=== PATIENT | female | born 2000 | race Caucasian/White ===

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

== ENCOUNTER 2019-10-26 08:11 | Emergency (ER) | payer BC ==
--- OUTSIDE RECORDS SUMMARY | 2019-10-26 08:22 | XMS REPORT | Continuity of Care Document ---
:2000 Author Organization [facility] Address [address] [place] [address] Phone Care Team Providers Name Role Phone Wendy LABORER COOK HOUSERaven Unavailable Unavailable [facility], NURSE OR MA Unavailable Unavailable Allergies, Adverse Reactions, Alerts Substance Reaction Status Penicillins RashRash Active Medications Medication Instructions Dosage Effective Dates Status Comments (start - stop) Claritin 5 mg/5 mL take 10 milliliter by 10 MG - Active oral solution oral route every day Problems Condition Effective Dates (start - Clinical Status Comments stop) Encounter for test, result positive Body mass index (BMI) 22.0-22.9, adult Encounter for test, result negative Encounter for oth general cnsl and advice on contraception Encntr screen for infections w sexl mode of transmiss Procedures Procedure Date POSITIVE TEST MA ONLY VISIT EST OTHER Medical Services Contraceptive Global Account Executive.Svc. Other Global Account Executive.Svc. STI Contraceptive Global Account Executive.Svc. Other Global Account Executive.Svc. STI Global Account Executive.Svc. POS PREG DESIRED NOW REFERRAL FOR Results Test Name Date and Time Measure Units Reference Range Abnormal Flag Status Comments Panel Description: High Sensitivity Urine Test Final High Sensitivity Urine 09:28:24 PositiveInternal Quality Final Test Control: Positive Advance Directives Directive Yes / No Effective Date File Name No information Encounters Encounter Practice Location Reason(s) Diagnoses Date Provider Providers Description For Visit Copied on Encounter [facility] Encounter for [place] [facility] [place] Test test, [employer]. Provider: [place] (chief result positive [address] [place] complaint) [place], [place] [place] [place], [address], [place], [place], [place], [address]. [place], [address]. [id number], tel: tel: [phone] tel: sulting [phone] Provider: NURSE OR MA [facility]. [facility] Body mass index [place] [place] (BMI) 22.0-22.9, [place]. Provider: [facility] for [address] test, [place] [place] [facility]ounter [place], [address], [place], for oth general [place], [place], [place], [place] [address], [place], [address]. [id number], contraceptionEncntr US. US screen for tel: infections w sexl [id number] mode of transmiss Family History Family Member Diagnosis Age At Onset No information Immunizations Vaccine Date Status Comments No information Payers Payer name Insurance type Covered alliance party ID Authorization(s) No information Social History Type Description Quantity Date Captured Comments Alcohol Use Details Unknown Caffeine Use Details Unknown Tobacco Use Status Current non-smoker Smoking Status Never smoker Non-Smoking Tobacco : No Details Available : No Details Available 2018 Use Details Sex Female Vital Signs Date / Height Weight BMI Pulse Blood Temperature Respiratory Body Head BMI Pulse Inhaled Time: Rate Pressure Rate Surface Circumference percentile Ox Ox Area No information Chief Complaint And Reason For Visit Most recent encounter only, dated '09/28/2019 09:00'. Test ( chief complaint) Reason For Referral Reason For Referral No information Plan Of Treatment Date Type Action Status No information History Of Present Illness Encounter Date Complaint History Of Present Illness No information Functional Status Date Functional Assessment No information Medications Administered Medication Instructions Dosage Effective Dates (start - stop) Status Comments No information Instructions Date Instruction Additional Information No information Assessments Type Assessment Date assessment Encounter for test, result positive Goals Health Concern Goal Type Priority Status Date No information Medical Equipment Description Device [place] Device Identifier Effective Dates (start - stop ) Status No information Mental Status Date Cognitive Assessment No information Health Concerns Observation Date No information Concern Status Date No information
[2019-10-26] MEDS ORDERED: Acetaminophen TAB* 325 MG PO ONE (08:29)
--- NOTE | 2019-10-26 08:34 | ED ---
GI/ HPI - HPI Summary HPI Summary: The patient is a 19 y/o F presenting to [facility] with a chief complaint of sore throat and cough onset a week ago and nausea and vomiting onset two days ago. She reports that about a week ago she began to experience cold symptoms with a sore throat and cough. She was feeling better two days ago but then developed nausea, vomiting, intermittent suprapubic cramping, body aches, fatigue, and dizziness. She notes that she is currently 8 weeks gravid and has been to the OB [facility] to confirm intrauterine . She denies any vaginal bleeding, vaginal discharge, fevers, or diarrhea. Symptoms rated 5/10 in severity. A0. No PMHx. Nonsmoker, no EtOH, no substance use. Medications reviewed. Allergies noted. - History of Current Complaint Chief Complaint: EDNauseaVomitDiarrh Time Seen by Provider: 10/26/19 08:19 Stated Complaint: GENERAL ILLNESS/VOMITING PER PT Hx Obtained From: Patient Onset/Duration: Started Days Ago, Still Present Timing: Lasting Days Severity: Moderate Current Severity: Moderate Pain Intensity: 5 Location of Pain: Suprapubic Pain Characteristics: Cramping Associated Signs and Symptoms: Positive: Dizziness, Nausea, Vomiting, Abdominal Pain, Cough, Other: - sore throat, fatigue, body aches. Negative: Diarrhea, Fever Additional Signs & Symptoms: Positive: . Negative: Vaginal Bleeding, Vaginal Discharge - Allergy/Home Medications Allergies/Adverse Reactions: Allergies Allergy/AdvReac Type Severity Reaction Status Date / Time Penicillins Allergy Rash Verified 10/26/19 08:16 PMH/Surg Hx/FS Hx/Imm Hx Endocrine/Hematology History: Denies: Hx Diabetes Cardiovascular History: Denies: Hx Hypertension Respiratory History: Denies: Hx Asthma - Surgical History Surgical History: Yes Surgery Procedure, Year, and Place: wisdom teeth Infectious Disease History: No Infectious Disease History: Denies: Traveled Outside the [place] in Last 30 Days - Family History Known Family History: Negative: Cardiac Disease - Social History Alcohol Use: None Hx Substance Use: No Substance Use Type: Reports: None Hx Tobacco Use: No Smoking Status (MU): Never Smoked Tobacco Review of Systems Positive: Fatigue. Negative: Fever Positive: Sore Throat Positive: Cough Positive: Abdominal Pain - intermittent suprapubic cramping, Vomiting, Nausea. Negative: Diarrhea Negative: discharge, other - bleeding Positive: Myalgia - generalized body aches Neurological: Other - dizziness All Other Systems Reviewed And Are Negative: Yes Physical Exam - Summary Physical Exam Summary: Constitutional: Well-developed, Well-nourished, Alert. (-) Distressed Skin: Warm, Dry HENT: Normocephalic; Atraumatic; Tonsillar erythema, Uvula midline Eyes: Conjunctiva normal Neck: Musculoskeletal ROM normal neck. (-) JVD, (-) Stridor, (-) Tracheal deviation Cardio: Rhythm regular, rate normal, Heart sounds normal; Intact distal pulses; Radial pulses are 2+ and symmetric. (-) Murmur Pulmonary/Chest wall: Effort normal. (-) Respiratory distress, (-) Wheezes, (-) Rales Abd: Soft, (+) suprapubic tenderness, (-) Distension, (-) Guarding, (-) Rebound Musculoskeletal: (-) Edema Lymph: (+) Anterior cervical adenopathy Neuro: Alert, Oriented x3 Psych: Mood and affect Normal Triage Information Reviewed: Yes Vital Signs On Initial Exam: Initial Vitals Temp Pulse Resp BP Pulse Ox 97.8 F 86 14 120/88 99 10/26/19 08:12 10/26/19 08:12 10/26/19 08:12 10/26/19 08:12 10/26/19 08:12 Vital Signs Reviewed: Yes Procedures - Sedation Patient Received Moderate/Deep Sedation with Procedure: No Diagnostics - Vital Signs Vital Signs Temp Pulse Resp BP Pulse Ox 10/26/19 08:12 97.8 F 86 14 120/88 99 - Laboratory Lab Statement: Any lab studies that have been ordered have been reviewed, and results considered in the medical decision making process. Re-Evaluation - Re-Evaluation First Eval Re-Evaluation Time: 09:10 Comment: We discussed results and plan for discharge. GIGU Course/Dx - Course Course Of Treatment: Patient is here with viral type symptoms in the setting of . Patient is overall well-appearing with only mild suprapubic tenderness. Patient had a negative rapid influenza and rapid strep test. Patient had a UA which showed bacteriuria. Patient was started on Keflex. Patient was given Tylenol for her pain. Patient was encouraged to follow up with her [facility] in the next 1-3 days. Patient had no vaginal symptoms and do not believe this represents a complication with her . Patient has had an US already which identified an IUP with a positive heart rate. - Diagnoses Provider Diagnoses: Asymptomatic bacteriuria, Viral syndrome Discharge ED - Sign-Out/Discharge Documenting (check all that apply): Patient Departure - Patient will be discharged home. - Discharge Plan Condition: Stable Disposition: HOME Prescriptions: Cephalexin CAP* [Keflex CAP*] 500 mg PO TID 3 Days #9 cap Metoclopramide TAB* [Reglan TAB*] 5 mg PO Q8H #12 tab Patient Education Materials: Viral Syndrome (ED) Referrals: Ramila Coffey NP [Primary Care Provider] - 3 Days Modesto Villaseñor MD [Medical Doctor] - 3 Days Additional Instructions: Take antibiotics as prescribed. Use nausea medications as needed. Stay hydrated with Gatorade and Pedialyte. Come back to the emergency department for any vaginal bleeding, vaginal discharge, worsening abdominal pain, trouble breathing , or any other concerning symptoms. Follow up with Dr. Villaseñor in 1-3 days. - Billing Disposition and Condition Condition: STABLE Disposition: Home - Attestation Statements Document Initiated by Alonzoibe: Yes Documenting Scribe: Anabel Juarez Provider For Whom Antoni is Documenting (Include Credential): Dr. Deni Graves MD Scribe Attestation: Anabel Alvarado scribed for Dr. Deni Graves MD on 10/26/19 at 0929. Scribe Documentation Reviewed: Yes Provider Attestation: The documentation as recorded by the Anabel ambrose accurately reflects the service I personally performed and the decisions made by me, Dr. Deni Graves MD Status of Scribe Document: Viewed
[2019-10-26 08:53] LABS: Urine Appearance Turbid; Urine Bilirubin Negative (Negative); Urine Blood Negative (Negative); Urine Color Yellow; Urine Glucose Negative (Negative); Urine Ketones Negative (Negative); Urine Nitrite Negative (Negative); Urine Protein Negative (Negative); Urine Urobilinogen Negative (Negative)
[2019-10-26 08:55] LABS: Rapid Strep Molecular Negative (Negative)
[2019-10-26 09:02] LABS: Influenza A Molecular NEGATIVE (Negative); Influenza B Molecular NEGATIVE (Negative)
[2019-10-26 09:03] LABS: Urine Bacteria 2+ (Absent); Urine Red Blood Cell Trace(0-2/hpf) (Absent); Urine Squamous Epithelial Cell Present (Absent); Urine White Blood Cell 3+(>20/hpf) (Absent)
[2019-10-26 09:28] VITALS: BP 96/62
== END 2019-10-26 09:30 | disposition home or self-care (01) ==
LOC: ED 08:11
DX: B34.9 Viral infection, unspecified (principal); R82.71 Bacteriuria; J02.9 Acute pharyngitis, unspecified; R05 Cough; R11.2 Nausea with vomiting, unspecified; R10.9 Unspecified abdominal pain; Z79.899 Other long term (current) drug therapy
CPT/HCPCS: 81003; 81015; 87086; 87651; 99283; A9270-GY

== ENCOUNTER 2020-05-22 23:08 | Inpatient (IN) ==
[2020-05-23] MEDS ORDERED: ceFAZolin 2 GM PREMIX 2 GM/50 ML BAG IVPB ONE (00:09)
[2020-05-23] MEDS ORDERED: Lactated Ringers 1000 ml BAG 1,000 ML IV ONE (00:09)
[2020-05-23 00:41] LABS: ABS Eosinophils 0.1 10^3/ul (0-0.6); ABS Lymphocytes 2.6 10^3/ul (1.0-4.8); ABS Monocytes 0.9 10^3/ul (0-0.8); Eosinophil % 0.7 %; Hematocrit 37 % (35-47); Hemoglobin 13.2 g/dL (12.0-16.0); Lymphocyte % 18.6 %; Mean Corpuscular HGB Conc 36 g/dL (31-36); Mean Corpuscular Hemoglobin 32 pg (27-31); Mean Corpuscular Volume 91 fL (80-97); Mean Platelet Volume 8.8 fL (7.4-10.4); Platelet Count 266 10^3/uL (150-450); Red Blood Count 4.11 10^6 /uL (3.70-4.87); Red Cell Distribution Width 13 % (10-15); White Blood Count 13.9 10^3/uL (3.5-10.8)
[2020-05-23] MEDS ORDERED: Lactated Ringers 1000 ml BAG 1,000 ML IV SCH (01:00)
[2020-05-23 01:14] LABS: Urine Benzodiazepine Screen None Detected (None Detect); Urine Opiates Screen None Detected (None Detect)
[2020-05-23] MEDS: ceFAZolin 1 GM ADVAN 1 GM in NS 0.9% 50 ML 50 ML IVPB SCH ×2 (08:37→18:00)
[2020-05-23] MEDS ORDERED: OBEPIDURAL 250 ML EPIDURAL ONE (10:02)
[2020-05-23] MEDS ORDERED: Lidocaine 2% w/ EPI 1:200,000 MPF 20 ML SDV VIAL ONE (10:15)
[2020-05-23] MEDS ORDERED: Lactated Ringers 500 ml BAG 500 ML IV PRN ×2 (10:44→13:43)
[2020-05-23] MEDS ORDERED: Witch Hazel PAD JAR TOPICAL PRN (15:26)
[2020-05-23] MEDS: Dibucaine 1% OINT 28.35 GM TUBE PR PRN (16:41)
[2020-05-24 07:30] LABS: ABS Eosinophils 0.1 10^3/ul (0-0.6); ABS Lymphocytes 2.4 10^3/ul (1.0-4.8); Eosinophil % 0.4 %; Hematocrit 33 % (35-47); Hemoglobin 11.7 g/dL (12.0-16.0); Lymphocyte % 16.9 %; Mean Corpuscular HGB Conc 35 g/dL (31-36); Mean Corpuscular Hemoglobin 32 pg (27-31); Mean Corpuscular Volume 91 fL (80-97); Mean Platelet Volume 8.3 fL (7.4-10.4); Platelet Count 206 10^3/uL (150-450); Red Blood Count 3.61 10^6 /uL (3.70-4.87); Red Cell Distribution Width 13 % (10-15); White Blood Count 14.5 10^3/uL (3.5-10.8)
[2020-05-24] MEDS: Dibucaine 1% OINT 28.35 GM TUBE PR PRN (18:39)
[2020-05-25 09:52] VITALS: BP 120/70
== END 2020-05-25 10:55 | disposition home or self-care (01) | DRG 560 ==
LOC: MCHOBOUT 23:08 → MCHOB 23:51
PROVIDERS: ADMIT Obstetrics & Gynecology; ATTEND Obstetrics & Gynecology

== ENCOUNTER 2020-09-10 09:32 | Inpatient (IN) ==
[2020-09-10] MEDS ORDERED: NS 0.9% 1000 ml BAG 1,000 ML IV ONE (10:03)
[2020-09-10 10:17] LABS: Hematocrit 41 % (35-47); Hemoglobin 13.9 g/dL (12.0-16.0); Mean Corpuscular HGB Conc 34 g/dL (31-36); Mean Corpuscular Hemoglobin 30 pg (27-31); Mean Corpuscular Volume 87 fL (80-97); Mean Platelet Volume 7.8 fL (7.4-10.4); Platelet Count 326 10^3/uL (150-450); Red Blood Count 4.69 10^6 /uL (3.70-4.87); Red Cell Distribution Width 13 % (10-15); White Blood Count 30.3 10^3/uL (3.5-10.8)
[2020-09-10 10:17] LABS: Urine Appearance Cloudy; Urine Bilirubin Negative (Negative); Urine Blood Negative (Negative); Urine Color Yellow; Urine Glucose Negative (Negative); Urine Ketones Negative (Negative); Urine Nitrite Negative (Negative); Urine Protein 1+(30 mg/dL) (Negative); Urine Specific Gravity 1.025 (1.010-1.030); Urine Urobilinogen Negative (Negative)
[2020-09-10 10:19] LABS: Urine Bacteria Absent (Absent); Urine Red Blood Cell 1+(3-5/hpf) (Absent); Urine Squamous Epithelial Cell Present (Absent); Urine White Blood Cell Trace(0-5/hpf) (Absent)
[2020-09-10 10:34] LABS: ALT 20 U/L (7-52); AST 23 U/L (13-39); Albumin 4.5 g/dL (3.2-5.2); Albumin/Globulin Ratio 1.4 (1-3); Alkaline Phosphatase 111 U/L (34-104); Anion Gap 9 mmol/L (2-11); BUN/Creatinine Ratio 15.9 (8-20); Blood Urea Nitrogen 14 mg/dL (6-24); C Reactive Protein 11.88 mg/L (<8.01); CO2 Carbon Dioxide 25 mmol/L (22-32); Calcium 9.5 mg/dL (8.6-10.3); Chloride 103 mmol/L (101-111); EGFR African American 99.1 (>60); EGFR Non-African American 81.9 (>60); Globulin 3.3 g/dL (2-4); Glucose 115 mg/dL (70-100); Lipase 21 U/L (11.0-82.0); Magnesium 1.4 mg/dL (1.9-2.7); Potassium 3.7 mmol/L (3.5-5.0); Sodium 137 mmol/L (135-145); Total Protein 7.8 g/dL (6.4-8.9)
[2020-09-10 10:40] LABS: HCG Pregnancy < 0.60 mIU/mL
[2020-09-10 11:10] LABS: ABS Lymphocytes 0.5 10^3/ul (1.0-4.8); ABS Monocytes 1.1 10^3/ul (0-0.8); ABS Neutrophils 28.7 10^3/ul (1.5-7.7); Lymphocyte % 1.5 %
[2020-09-10] MEDS ORDERED: Magnesium Sulfate IV 1GM/100ML 1 GM/100 ML BAG IV ONE (11:33)
[2020-09-10] MEDS ORDERED: Dexamethasone IV 4 MG/ML VIAL 1 ml VIAL IV SLOW PU ONE (12:01)
[2020-09-10] MEDS ORDERED: Iohexol 350 (CONTRAST) 500 ML MDV IV ONE (13:22)
[2020-09-10] MEDS ORDERED: Ondansetron 4 mg VIAL 2 MG/ML 2 ml VIAL IV PRN (15:29)
[2020-09-10 15:43] LABS: Influenza A Molecular Negative (Negative); Influenza B Molecular Negative (Negative)
[2020-09-10] MEDS ORDERED: NS 0.9% IV ONE (15:48)
[2020-09-10] MEDS: NS 0.9% 1000 ml BAG 1,000 ML IV SCH (16:11)
[2020-09-10] MEDS ORDERED: cefTRIAXone 1 gm/50 mL NS BAG 1 GM/50 ML BAG IVPB SCH (17:00)
[2020-09-10] MEDS ORDERED: Enoxaparin 40 MG/0.4 ML SYR SUBCUT SCH (18:30)
[2020-09-11] MEDS: NS 0.9% 1000 ml BAG 1,000 ML IV SCH (05:35)
[2020-09-11 06:34] LABS: Hematocrit 39 % (35-47); Hemoglobin 12.9 g/dL (12.0-16.0); Mean Corpuscular HGB Conc 33 g/dL (31-36); Mean Corpuscular Hemoglobin 29 pg (27-31); Mean Corpuscular Volume 87 fL (80-97); Mean Platelet Volume 7.5 fL (7.4-10.4); Platelet Count 337 10^3/uL (150-450); Red Blood Count 4.41 10^6 /uL (3.70-4.87); Red Cell Distribution Width 13 % (10-15); White Blood Count 24.6 10^3/uL (3.5-10.8)
[2020-09-11 06:36] LABS: ABS Lymphocytes 1.3 10^3/ul (1.0-4.8); ABS Monocytes 0.7 10^3/ul (0-0.8); ABS Neutrophils 22.6 10^3/ul (1.5-7.7); Lymphocyte % 5.2 %
[2020-09-11 06:50] LABS: Albumin/Globulin Ratio 1.3 (1-3); BUN/Creatinine Ratio 14.8 (8-20); Calcium 9.3 mg/dL (8.6-10.3); EGFR African American 109.1 (>60); EGFR Non-African American 90.1 (>60); Globulin 3.2 g/dL (2-4); Potassium 3.5 mmol/L (3.5-5.0); Total Bilirubin 0.4 mg/dL (0.2-1.0); Total Protein 7.2 g/dL (6.4-8.9)
[2020-09-11 08:47] LABS: Magnesium 1.7 mg/dL (1.9-2.7)
[2020-09-11 14:05] LABS: C Reactive Protein 129.52 mg/L (<8.01)
[2020-09-11 15:50] VITALS: BP 107/62
== END 2020-09-11 16:05 | disposition home or self-care (01) | DRG 720 ==
LOC: ED 09:32 → MED 15:22
PROVIDERS: ADMIT Internal Medicine; ATTEND Pediatrics

== ENCOUNTER 2022-04-10 04:09 | Inpatient (IN) ==
[2022-04-10] MEDS ORDERED: Buffered Lidocaine 1% SYRIN 1 ml INTRADERM ONE ×2 (04:48→08:39)
[2022-04-10] MEDS ORDERED: Morphine 10 MG/ML VIAL (1 ml) IM ONE (05:03)
[2022-04-10] MEDS ORDERED: Promethazine INJ(RESTRICTED) 25 MG/ML 1 ml VIAL IM PRN (05:03)
[2022-04-10] MEDS ORDERED: Ondansetron 4 mg VIAL 2 MG/ML 2 ml VIAL IV PRN (05:05)
[2022-04-10 05:33] LABS: Urine Appearance Clear; Urine Bilirubin Negative (Negative); Urine Blood Negative (Negative); Urine Color Yellow; Urine Glucose Negative (Negative); Urine Ketones Trace (Negative); Urine Nitrite Negative (Negative); Urine Protein Negative (Negative); Urine Specific Gravity 1.011 (1.002-1.030); Urine Urobilinogen Negative (Negative)
[2022-04-10 05:54] LABS: Urine Benzodiazepine Screen None Detected (None Detect); Urine Opiates Screen None Detected (None Detect)
[2022-04-10 06:09] LABS: Urine Bacteria Absent (Absent); Urine Red Blood Cell Trace(0-2/hpf) (Absent); Urine Squamous Epithelial Cell Present (Absent); Urine White Blood Cell Trace(0-5/hpf) (Absent)
[2022-04-10] MEDS ORDERED: Lactated Ringers 1000 ml BAG 1,000 ML IV ONE (08:39)
[2022-04-10] MEDS ORDERED: Lactated Ringers 1000 ml BAG 1,000 ML IV SCH ×2 (09:00→17:00)
[2022-04-10] MEDS ORDERED: Oxytocin in LR 20 UNITS/1,000 ML BAG IVPB SCH ×2 (09:00→17:00)
[2022-04-10 09:22] LABS: ABS Eosinophils 0.1 10^3/ul (0-0.6); ABS Lymphocytes 2.3 10^3/ul (1.0-4.8); ABS Monocytes 0.7 10^3/ul (0-0.8); ABS Neutrophils 10.4 10^3/ul (1.5-7.7); Eosinophil % 0.7 %; Hematocrit 36 % (35-47); Lymphocyte % 16.9 %; Mean Corpuscular HGB Conc 33 g/dL (31-36); Mean Corpuscular Hemoglobin 30 pg (27-31); Mean Corpuscular Volume 90 fL (80-97); Mean Platelet Volume 8.2 fL (7.4-10.4); Platelet Count 300 10^3/uL (150-450); Red Blood Count 4.04 10^6 /uL (3.70-4.87); Red Cell Distribution Width 13 % (10-15); White Blood Count 13.4 10^3/uL (3.5-10.8)
[2022-04-10 12:36] LABS: HIV 4th Generation Nonreactive (Nonreactive)
[2022-04-10] MEDS ORDERED: OBEPIDURAL (200 ML) 0 ML EPIDURAL ONE (15:07)
[2022-04-10] MEDS ORDERED: Lidocaine/Epinephrin 1.5%/200 5 ML AMP INJ ONE (15:07)
[2022-04-10] MEDS ORDERED: Dibucaine 1% OINT 28.35 GM TUBE ONE (16:09)
[2022-04-10] MEDS ORDERED: Witch Hazel PAD JAR ONE (16:09)
[2022-04-10] MEDS ORDERED: Witch Hazel PAD JAR TOPICAL PRN (16:11)
[2022-04-10] MEDS ORDERED: Dibucaine 1% OINT 28.35 GM TUBE PR PRN (16:11)
[2022-04-11 08:30] VITALS: BP 106/63
[2022-04-11 08:32] LABS: ABS Eosinophils 0.1 10^3/ul (0-0.6); ABS Lymphocytes 2.1 10^3/ul (1.0-4.8); ABS Neutrophils 11.5 10^3/ul (1.5-7.7); Eosinophil % 0.8 %; Hematocrit 34 % (35-47); Hemoglobin 11.1 g/dL (12.0-16.0); Lymphocyte % 14.2 %; Mean Corpuscular HGB Conc 33 g/dL (31-36); Mean Corpuscular Hemoglobin 30 pg (27-31); Mean Corpuscular Volume 90 fL (80-97); Mean Platelet Volume 8.4 fL (7.4-10.4); Platelet Count 277 10^3/uL (150-450); Red Blood Count 3.73 10^6 /uL (3.70-4.87); Red Cell Distribution Width 13 % (10-15); White Blood Count 14.7 10^3/uL (3.5-10.8)
== END 2022-04-11 16:40 | disposition home or self-care (01) | DRG 560 ==
LOC: MCHOBOUT 04:09 → MCHOB 08:33
PROVIDERS: ADMIT Midwife; ATTEND Midwife

== ENCOUNTER 2024-09-10 18:44 | Observation (INO) ==
[2024-09-10 19:17] LABS: ABS Eosinophils 0.1 10^3/uL (0.0-0.5); ABS Lymphocytes 3.7 10^3/uL (1.0-4.8); ABS Monocytes 0.8 10^3/uL (0.0-0.9); ABS Neutrophils 9.3 10^3/uL (1.5-7.6); Eosinophil % 0.9 %; Hematocrit 40.7 % (35-45); Lymphocyte % 26.6 %; Mean Corpuscular Hemoglobin 29.3 pg (27-33); Mean Corpuscular Hgb Conc 34.3 g/dL (31-36); Mean Corpuscular Volume 85.5 fL (80-97); Mean Platelet Volume 7.2 fL (7.5-11.2); Platelet Count 418 10^3/uL (150-450); Red Blood Count 4.76 10^6/uL (3.63-4.92); Red Cell Distribution Width 12.7 % (12-17); White Blood Count 13.8 10^3/uL (3.8-11.8)
[2024-09-10 19:22] LABS: INR 1.12 (0.85-1.14)
[2024-09-10 19:43] LABS: High Sens Troponin Baseline < 3 pg/mL (<15)
[2024-09-10 19:58] LABS: ALT 11 U/L (7-52); AST 15 U/L (13-39); Albumin 4.8 g/dL (3.2-5.2); Albumin/Globulin Ratio 1.9 (1-3); Alkaline Phosphatase 61 U/L (35-149); Anion Gap 5 mmol/L (2-16); Blood Urea Nitrogen 8 mg/dL (6-24); CO2 Carbon Dioxide 28 mmol/L (22-32); Calcium 10.2 mg/dL (8.6-10.3); Chloride 101 mmol/L (101-111); Creatinine, Serum 0.83 mg/dL (0.51-0.95); Globulin 2.5 g/dL (2-4); Glucose 115 mg/dL (70-100); Potassium 3.6 mmol/L (3.5-5.0); Sodium 134 mmol/L (135-145); Total Bilirubin 0.5 mg/dL (0.2-1.0); Total Protein 7.3 g/dL (6.4-8.9); eGFR CKD-EPI 100.9 (>60)
[2024-09-10 20:52] LABS: High Sensitivity Troponin 1 Hr < 3 pg/mL (<15)
[2024-09-10] MEDS: Ondansetron 4 mg VIAL 2 MG/ML 2 ml VIAL IV ONE (23:16)
[2024-09-10] MEDS: fentaNYL 100 mcg/2 ml 50 MCG/ML VIAL IV SLOW PU ONE (23:40)
[2024-09-11] MEDS: HYDROmorphone 1 MG/1 ML SYRINGE IV SLOW PU PRN (02:33)
[2024-09-11] MEDS: Ondansetron 4 mg VIAL 2 MG/ML 2 ml VIAL IV PRN (02:41)
[2024-09-11] MEDS: NS 0.9% 1000 ml BAG 1,000 ML IV SCH (10:37)
[2024-09-11] MEDS ORDERED: Naloxone 0.4 mg VIAL 0.4 mg/ml 1 ml VIAL ONE (12:04)
[2024-09-11] MEDS ORDERED: Flumazenil 0.5 mg/5 ml 0.1 MG/ML 5 ml VIAL ONE (12:04)
[2024-09-11] MEDS: Ondansetron 4 mg VIAL 2 MG/ML 2 ml VIAL IV ONE (12:11)
[2024-09-11] MEDS ORDERED: Midazolam 5 mg/5 ml VIAL 1 mg/ml 5 ml VIAL (5 mg) ONE (13:24)
[2024-09-11] MEDS: fentaNYL 100 mcg/2 ml 50 MCG/ML VIAL IV SLOW PU ONE (13:56)
[2024-09-11] MEDS: Midazolam 5 mg/5 ml VIAL 1 mg/ml 5 ml VIAL (5 mg) IV SLOW PU ONE (14:00)
[2024-09-11] MEDS: Lidocaine 1% MPF 5 ML VIAL INJ ONE (14:01)
[2024-09-11] MEDS: Prochlorperazine 5 mg/ml 2 ml VIAL (10 mg) IV ONE (16:00)
[2024-09-11] MEDS: HYDROmorphone 1 MG/1 ML SYRINGE IV ONE (16:40)
[2024-09-12] MEDS: Lidocaine PATCH 5% PATCH TRANSDERM SCH (20:50)
[2024-09-13] MEDS: Polyethylene Glycol 3350 17 GM PACKET PO PRN (12:17)
[2024-09-13] MEDS: HYDROmorphone 0.5 MG/0.5 ML SYRINGE IV SLOW PU PRN (22:25)
[2024-09-14 06:11] VITALS: BP 102/64
== END 2024-09-14 08:15 | disposition short-term general hospital (02) ==
LOC: ED 18:44 → EDHOLD 18:44 → SSU 09-12 16:15
PROVIDERS: ADMIT Surgery; ATTEND Surgery